=== PATIENT | female | born 1950 | race Two or more races ===

== ENCOUNTER → 2016-06-02 | Day surgery (SDC) | payer MEDICARE, OTHER ==
[~2016-06-02] VITALS: Ht 165.1 cm; Wt 54.0 kg
[~2016-06-02] MED LIST: DYAZIDE1 CAP ORAL; LR 1000ml ONE; Lidocaine 1% MPF 10mg/ml 5ml ONE; Propofol 10mg/ml 20ml IV ONE; SIMVASTATIN20 MG ORAL
[2016-06-02 09:40] VITALS: BP 150/89
--- NOTE | 2016-06-02 09:52 | Short Stay Surgery H&P ---
History of Present Illness History of Present Illness Chief Complaint see H&P HPI Mi King is a 65 year old female who was admitted on for Colon Screening Patient History Allergies: Coded Allergies: NO KNOWN ALLERGIES (Verified Allergy, Unknown, 06/02/16) PAST MEDICAL HISTORY: Past Surgeries: Social History: Medication History Scheduled Simvastatin (Zocor), 20 MG ORAL BEDTIME, (Reported) Triamterene/Hctz (Triamterene-Hctz 37.5-25 mg Cp), 1 CAP ORAL DAILY, (Reported) Physical Exam Vital Signs Last Vital Signs Date Time Temp Pulse Resp B/P Pulse Ox O2 Delivery O2 Flow Rate FiO2 06/02/16 09:40 97.0 101 17 150/89 99 Room Air Plan Attestation Are the patient's medical conditions optimized for surgery? MEJIA HARRIS Jun 02, 2016 09:52
--- NOTE | 2016-06-02 09:53 | Pre-Procedure Note/Attestation ---
Pre-Procedure Note/Attestation Complete Prior to Procedure Planned Procedure: not applicable Procedure Narrative: colon Indications for Procedure Pre-Operative Diagnosis: screen Attestation I attest that I discussed the nature of the procedure; its benefits; risks and complications; and alternatives (and the risks and benefits of such alternatives ), prior to the procedure, with the patient (or the patient's legal branch customer service representative). I attest that, if there was a reasonable possibility of needing a blood transfusion, the patient (or the patient's legal branch customer service representative) was given the [facility] standardized written summary, pursuant to the Kareem Rosamaria Blood Safety Act ([place] Health and Safety Code # 1645, as amended). I attest that I re-evaluated the patient just prior to the surgery and that there has been no change in the patient's H&P, except as documented below: MEJIA HARRIS Jun 02, 2016 09:53
--- NOTE | 2016-06-02 10:14 | Anethesia Preoperative Eval ---
Anesthesia Pre-op PMH/ROS General Date of Evaluation: Jun 02, 2016 Time of Evaluation: 10:00 Anesthesiologist: andriy ASA Score: ASA 2 Mallampati Score Class I : Soft palate, uvula, fauces, pillars visible Class II: Soft palate, uvula, fauces visible Class III: Soft palate, base of uvula visible Class IV: Only hard plate visible Surgeon: raquel Diagnosis: colon screening Surgical Procedure: colonoscopy Anesthesia History: none Social History: smoking, current smoker Family History: no anesthesia problems Allergies: Coded Allergies: NO KNOWN ALLERGIES (Verified Allergy, Unknown, 06/02/16) Past Medical History Cardiovascular: Denies: CAD, HTN, DC, arrhythmia, other, valve dz Pulmonary: Denies: COPD, CHASTITY, asthma, other Gastrointestinal/Genitourinary: Denies: CRI, ESRD, GERD, other Neurologic/Psychiatric: Reports: depression/anxiety Endocrine: Denies: DM, hypothyroidism, other, steroids HEENT: Denies: [place] (L), [place] (R), cataract (L), cataract (R), glaucoma, other Hematology/Immune: Denies: DVT, anemia, bleeding disorder, other Musculoskeletal/Integumentary: Denies: DDD, DJD, OA, RA, edema, other PSxH Narrative: breast reduction Anesthesia Pre-op Phys. Exam Physician Exam Last Vital Signs Date Time Temp Pulse Resp B/P Pulse Ox O2 Delivery O2 Flow Rate FiO2 06/02/16 09:40 97.0 101 17 150/89 99 Room Air Constitutional: NAD Neurologic: CN 2-12 intact Cardiovascular: RRR Respiratory: CTA Gastrointestinal: S/NT/ND Airway Exam Mallampati Classification 2 Mallampati Score: Class II MO: full Dentures: no lower, no upper Anesthesia Pre-op A/P Risk Assessment & Plan Plan: mac Status Change Before Surgery: No Pre-Antibiotics Drug: none ENA ALEXANDRA HOUSE BUILDER Jun 02, 2016 10:14
[2016-06-02 10:30] VITALS: BP 125/73
[2016-06-02 10:35] VITALS: BP 124/74
--- NOTE | 2016-06-02 10:37 | Endoscopy Procedure Note ---
Endoscopy Procedure Note Indication for Procedure: screening Procedures Performed: colonoscopy Operative Findings/Diagnosis: sigmid polp - SN and Bx Specimen: yes Pt Tolerated Procedure Well: Yes Estimated Blood Loss: none Anesthesiologist: see notes Anesthesia: MAC, moderate sedation Medication Given: see anesthesia record Implant(s) used?: No 50 yrs or older w/o bx or poly: No 10yrs. F/U not recommended: No If not recommended, why?: Above average risk 10 yrs. F/U needed: No 18 years or older w/prev. colo: No <3yrs. since last colonoscopy: No Med reason:<3 yrs.: System Reason:<3 yrs.: Last colonoscopy >= to 3yrs: Yes EMJIA HARRIS Jun 02, 2016 10:37
--- NOTE | 2016-06-02 10:38 | Brief Operative Note ---
Immediate Post Operative Note Operative Note Chief Complaint: scren Pre-op Diagnosis: screen Procedure: colon, SN and Bx, sig polyp at 1 , mild rhoid Post-op Diagnosis: see above Surgeon: leesa Anesthesiologist: see report Anesthesia: MAC, moderate sedation Specimen: yes Complications: none Condition: stable Estimated Blood Loss: none Drains: none Implant(s) used?: No MEJIA HARRIS Jun 02, 2016 10:38
[2016-06-02 10:40] VITALS: BP 118/71
--- NOTE | 2016-06-02 10:46 | Immediate Post-Op Evaluation ---
Immediate Post-Op Evalulation Immediate Post-Op Evalulation Procedure: colonoscopy Date of Evaluation: Jun 02, 2016 Time of Evaluation: 10:45 IV Fluids: 300 Blood Pressure Systolic: 125 Blood Pressure Diastolic: 65 Pulse Rate: 74 Respiratory Rate: 14 O2 Sat by Pulse Oximetry: 97 Nausea: No Vomiting: No Complications none Patient Status: awake, patent Hydration Status: adequate Drug: none ENA ALEXANDRA CRNA Jun 02, 2016 10:46
[2016-06-02 10:55] VITALS: BP 121/61
--- NOTE | 2016-06-02 11:00 | 48 Hour Post Anesthesia Eval ---
Post Anesthesia Evaluation Procedure: colonoscopy Date of Evaluation: Jun 02, 2016 Time of Evaluation: 10:59 Blood Pressure Systolic: 125 0: 70 Pulse Rate: 65 Respiratory Rate: 14 O2 Sat by Pulse Oximetry: 99 Airway: patent Nausea: No Vomiting: No Hydration Status: adequate Mental Status/LOC: patient returned to baseline Post-Anesthesia Complications: none ENA ALEXANDRA CRNA Jun 02, 2016 11:00
[2016-06-02 11:05] VITALS: BP 132/78
--- NOTE | 2016-06-06 23:27 | Operative Note - Dictated ---
GASTROENTEROLOGY PROCEDURE REPORT: DATE OF PROCEDURE: 06/01/2016 PROCEDURE: PRE-ENDOSCOPIC DIAGNOSIS: Screening colonoscopy. POST-ENDOSCOPIC DIAGNOSES: 1. Sigmoid polyp status post snare polypectomy. 2. Mild internal hemorrhoids. PROCEDURE: The procedure, its risks, indications, alternatives, and possible complications including, but not limited to, bleeding, infection, perforation, , and anesthesia complications were explained to the patient and informed consent was obtained. The colonoscope was then introduced in the rectum. After rectal exam was done, advanced to the cecum. The cecum was identified by the appearance of the ileocecal valve. The colonoscope was then gradually withdrawn and the mucosa examined carefully. Examination of colonic mucosa revealed 4 to 5 mm polyp in the sigmoid colon on a short stalk which was removed with a snare polypectomy without complications. Retroflexed view of the rectum revealed internal hemorrhoids, which were mild. The colonoscope was removed and the patient was sent to recovery in good condition. COMPLICATIONS: None. RECOMMENDATIONS: 1. Follow up biopsy results. 2. Outpatient followup. Trip Mark M.D. DR: Nicholas JOB#: [id number] CC: Trip Mark M.D.; Fax#: [phone]
== END | disposition home or self-care (01) ==
LOC: GAS 09:01
DX: Z12.11 Encounter for screening for malignant neoplasm of colon (principal); D12.5 Benign neoplasm of sigmoid colon; K64.8 Other hemorrhoids; Z86.010 Personal history of colon polyps; I10 Essential (primary) hypertension; E78.00 Pure hypercholesterolemia, unspecified; F32.9 Major depressive disorder, single episode, unspecified; F41.9 Anxiety disorder, unspecified
CPT/HCPCS: 45385; J2704; J7120; 94003; 94150